=== PATIENT | female | born 1995 | race Two or more races ===

== ENCOUNTER 2018-06-14 03:50 | Emergency (ER) | payer OTHER ==
[2018-06-14 03:56] VITALS: BP 123/80
[2018-06-14] MEDS ORDERED: IPRATROPIUM/ALBUTEROL 0.5-2.5 MG/3 ML AMPUL NEB ONE ×2 (04:03→05:29)
--- NOTE | 2018-06-14 05:23 | RADIOLOGY REPORT (SQ) ---
EXAM DESCRIPTION: XR CHEST 2 VIEWS COMPLETED DATE/TME: 06/14/2018 04:03 CLINICAL HISTORY: 22 years, Female, SOB COMPARISON: None. NUMBER OF VIEWS: 2 TECHNIQUE: 2 views of the chest LIMITATIONS: None. FINDINGS: Heart size normal. Lungs clear. No pneumothorax IMPRESSION: Negative chest copyright 2010 [employer]- All Rights Reserved
[2018-06-14] MEDS ORDERED: ALBUTEROL SULFATE 0.083% NEB 2.5 MG/3 ML AMPUL NEB ONE (05:30)
--- NOTE | 2018-06-14 06:39 | ER Document Report ---
ED General - General Chief Complaint: Asthma Exacerbation Stated Complaint: WHEEZING Time Seen by Provider: 06/14/18 04:00 Notes: Patient is a 22-year-old female presents to the emergency department for respiratory distress. Patient is a known asthmatic. States for the last 48 hours she has had increased cough, congestion. She is denying any fevers. States she did use her at-home albuterol a few hours ago with minimal relief. Patient states she does not have a nebulizer machine at home. Past medical history: Asthma Medications: Albuterol Allergies: None known medical allergies Last menstrual period 05/07/2018 Patient states she is late on her menstrual cycle is unsure if she is . TRAVEL OUTSIDE OF THE [place] IN LAST 30 DAYS: No - Related Data Allergies/Adverse Reactions: kiwi Allergy (Intermediate, Verified 09/01/16 21:22) Past Medical History - General Information source: Patient - Social History Smoking Status: Current Some Day Smoker Family History: None Patient has suicidal ideation: No Patient has homicidal ideation: No Renal/ Medical History: Denies: Hx Peritoneal Dialysis Psychiatric Medical History: Reports: Hx Depression Review of Systems - Review of Systems Constitutional: See HPI EENT: See HPI Cardiovascular: See HPI Respiratory: See HPI Gastrointestinal: No symptoms reported Genitourinary: No symptoms reported Female Genitourinary: See HPI Musculoskeletal: No symptoms reported Skin: No symptoms reported Hematologic/Lymphatic: No symptoms reported Neurological/Psychological: No symptoms reported Physical Exam - Vital signs Vitals: Temp Pulse Resp BP Pulse Ox 98.0 F 81 20 123/80 99 06/14/18 03:55 06/14/18 03:55 06/14/18 03:55 06/14/18 03:55 06/14/18 03:55 - Notes Notes: GENERAL: Alert, interacts well. No acute distress. HEAD: Normocephalic, atraumatic. EYES: Pupils equal, round, and reactive to light. Extraocular movements intact. ENT: Oral mucosa moist, tongue midline. Nares patent, TM's intact, nonerythematous, nonbulging bilaterally. Pharynx within normal limits no palatal petechiae noted NECK: Full range of motion. Supple. Trachea midline. No lymphadenopathy appreciated LUNGS: Inspiratory and expiratory wheezes by auscultation bilaterally, no discernible rales. rhonchi heard left lower base. No respiratory distress. HEART: Regular rate and rhythm. No murmur ABDOMEN: Soft, non-tender. Non-distended. Bowel sounds present in all 4 quadrants. EXTREMITIES: Moves all 4 extremities spontaneously. No edema, normal radial and dorsalis pedis pulses bilaterally. No cyanosis. BACK: no cervical, thoracic, lumbar midline tenderness. No saddle anesthesia, normal distal neurovascular exam. NEUROLOGICAL: Alert and oriented x3. Normal speech. cranial nerves II through XII grossly intact. PSYCH: Normal affect, normal mood. SKIN: Warm, dry, normal turgor. No rashes or lesions noted. Course - Re-evaluation Re-evalutation: After initial breathing treatments in the emergency department patient's rhonchi has cleared. She continues with an expiratory wheeze heard in all oh. Repeat breathing treatments delivered. Patient's test came back positive. At this point in time steroids are not warranted due to . After last breathing treatment patient's lung sounds are now clear and equal in all oh. Discussed with her use of at home albuterol with spacer or nebulizer every 4 hours until follow-up with primary care provider. Patient is nontachypneic, non-hypoxic, stable for discharge. - Vital Signs Vital signs: Temp Pulse Resp BP Pulse Ox 98.0 F 81 18 123/80 98 06/14/18 03:55 06/14/18 03:55 06/14/18 04:06 06/14/18 03:55 06/14/18 04:06 - Laboratory Laboratory results interpreted by me: 06/14/18 04:46 Urine HCG, Qual POSITIVE H Discharge - Discharge Clinical Impression: Asthma exacerbation Qualifiers: Asthma severity: moderate Asthma persistence: unspecified Qualified Code(s): J45.901 - Unspecified asthma with (acute) exacerbation Qualifiers: Weeks of gestation: less than 8 weeks Qualified Code(s): Z3A.01 - Less than 8 weeks gestation of Condition: Stable Disposition: HOME, SELF-CARE Instructions: Asthma ([facility]), Inhaled Bronchodilators ([facility]), ([facility]) Additional Instructions: As we discussed you have been seen and treated in the emergency department for an asthma exacerbation. Please make sure you continue to use your albuterol inhaler or nebulizer machine every 4 hours. Please make sure you follow-up with your primary care provider in the next 24 to 48 hours. Please know that your test in the emergency department came back positive. Please make sure you also follow-up with your primary care provider for confirmatory blood work continued care. Unfortunately due to your I am unable to prescribe you steroids to help with your lung inflammation. Please make sure he return to the emergency department should you have any further respiratory distress. Prescriptions: Albuterol Sulfate [Ventolin 0.083% Neb 2.5 mg/3 mL Ampul] 1 vial NEB Q4 #60 vial Nebulizer [Nebulizer Machine] 1 each ASDIR PRN #1 kit PRN Reason: Forms: Return to Work
== END 2018-06-14 07:05 | disposition home or self-care (01) ==
LOC: ER 03:50
DX: O26.91 Pregnancy related conditions, unspecified, first trimester (principal); J45.901 Unspecified asthma with (acute) exacerbation; O99.331 Smoking (tobacco) complicating pregnancy, first trimester; Z3A.01 Less than 8 weeks gestation of pregnancy
CPT/HCPCS: 94640 ×2; 99285; 81025; 71046; J7620

== ENCOUNTER 2018-08-25 23:43 | Emergency (ER) | payer OTHER ==
--- NOTE | 2018-08-26 01:36 | ER Document Report ---
ED Skin Rash/Insect Bite/Abscs - General Chief Complaint: Skin Problem Stated Complaint: RASH Time Seen by Provider: 08/26/18 00:57 Primary Care Provider: ROSALINA CARLOS FNP-C [Primary Care Provider] - Follow up as needed Mode of Arrival: Ambulatory Information source: Patient Notes: 23-year-old female presents to ED for complaint of rash to the right side of her back. She states she had some itching and redness for about a week and then they started hurting a couple days ago. Bumps are in a cluster and are vesicular herpetiform type rash to the right upper back. There is no crossing of the midline. There is no rash to the front. Patient states she did have chickenpox as a child. Patient is 15 weeks . Patient is alert oriented respirations regular and unlabored speaking in full sentences walks with even steady gait. TRAVEL OUTSIDE OF THE [place] IN LAST 30 DAYS: No - HPI Patient complains to provider of: Skin rash/lesion Onset: Other - She states she has had itchiness and what she thought was a few bumps to the right side for about a week but the last 3 days they have become more painful and more bumps. She states she has been scratching them. Onset/Duration: Gradual, Persistent, Worse Severity: Moderate Pain Level: 3 Skin Character: Rash, Tenderness Quality of rash: Itchy, Painful Identify cause: No Exacerbated by: Denies Relieved by: Denies Similar symptoms previously: No Recently seen / treated by doctor: No - Related Data Allergies/Adverse Reactions: kiwi Allergy (Intermediate, Verified 09/01/16 21:22) Past Medical History - General Information source: Patient - Social History Smoking Status: Former Smoker Cigarette use (# per day): No Smoking Education Provided: No Frequency of alcohol use: None Drug Abuse: None Lives with: Family Family History: None Patient has suicidal ideation: No Patient has homicidal ideation: No - Past Medical History Cardiac Medical History: Reports: None Pulmonary Medical History: Reports: None EENT Medical History: Reports: None Neurological Medical History: Reports: None Endocrine Medical History: Reports: None Renal/ Medical History: Reports: None Malignancy Medical History: Reports: None GI Medical History: Reports: None Musculoskeletal Medical History: Reports None Skin Medical History: Reports None Psychiatric Medical History: Reports: Hx Depression Traumatic Medical History: Reports: None Infectious Medical History: Reports: None Surgical Hx: Negative Past Surgical History: Reports: None - Immunizations Immunizations up to date: Yes Review of Systems - Review of Systems Constitutional: No symptoms reported EENT: No symptoms reported Cardiovascular: No symptoms reported Respiratory: No symptoms reported Gastrointestinal: No symptoms reported Genitourinary: No symptoms reported Female Genitourinary: No symptoms reported Musculoskeletal: No symptoms reported Skin: Rash Hematologic/Lymphatic: No symptoms reported Neurological/Psychological: No symptoms reported Physical Exam - Vital signs Vitals: Temp Pulse Resp BP Pulse Ox 97.8 F 83 17 119/71 98 08/26/18 00:08 08/26/18 00:08 08/26/18 00:08 08/26/18 00:08 08/26/18 00:08 Interpretation: Normal - General General appearance: Appears well, Alert - HEENT Head: Normocephalic, Atraumatic Eyes: Normal Pupils: PERRL - Respiratory Respiratory status: No respiratory distress Chest status: Nontender Breath sounds: Normal Chest palpation: Normal - Cardiovascular Rhythm: Regular Heart sounds: Normal auscultation Murmur: No - Abdominal Inspection: Normal Distension: No distension Bowel sounds: Normal Tenderness: Nontender Organomegaly: No organomegaly - Back Back: Normal, Tender - Vesicular herpetiform rash to the right upper back does not cross midline - Extremities General upper extremity: Normal inspection, Nontender, Normal color, Normal ROM, Normal temperature General lower extremity: Normal inspection, Nontender, Normal color, Normal ROM, Normal temperature, Normal weight bearing. No: Jasper's sign - Neurological Neuro grossly intact: Yes Cognition: Normal Orientation: AAOx4 Mohamud Coma Scale Eye Opening: Spontaneous Mohamud Coma Scale Verbal: Oriented Mohamud Coma Scale Motor: Obeys Commands Mohamud Coma Scale Total: 15 Speech: Normal Motor strength normal: LUE, RUE, LLE, RLE Sensory: Normal - Psychological Associated symptoms: Normal affect, Normal mood - Skin Skin Temperature: Warm Skin Moisture: Dry Skin Color: Normal Skin irregularity: Rash Location of irregularity: Back Character of irregularity: Vesicular - Herpetiform to the right upper back, Erythematous Irregularity with: Tenderness Course - Re-evaluation Re-evalutation: 08/26/18 01:[address] Pena for the rash to the right back. He agreed that it could possibly be shingles he agreed with treatment of Valtrex and patient is to follow-up with her OBST[facility]RICS SPECIALIST as she is 15 weeks . Patient was treated with Valtrex in the emergency room and discharged home with prescription for Valtrex 3 times daily for 7 days. - Vital Signs Vital signs: Temp Pulse Resp BP Pulse Ox 97.8 F 72 16 113/72 98 08/26/18 02:16 08/26/18 02:16 08/26/18 02:16 08/26/18 02:16 08/26/18 02:16 Discharge - Discharge Clinical Impression: Shingles rash Qualifiers: Herpes zoster complications: without complications Qualified Code(s): B02.9 - Zoster without complications Condition: Stable Disposition: HOME, SELF-CARE Additional Instructions: Shingles You have shingles. Shingles is caused by the chicken pox virus, The virus has been surviving dormant in a nerve cell since you had chicken pox years ago. The virus has spread down a nerve root to reach the skin. Typically, an band-like area of pain and skin sensitivity develops, then small blisters erupt in the area. Shingles lasts two or three weeks, but sometimes leaves persistent pain. You are contagious -- you can give children chicken pox. But you can't give anyone shingles. Antiviral medicines (such as acyclovir or famciclovir) can help, but the rash usually worsens for about a week. Pain medication is often given if the area hurts. Antihistamines such as Benadryl may be necessary for itching if it does not respond to soda baths and calamine lotion. Sometimes cortisone medicine or nerve-block shots are necessary if pain is severe. If the area remains severely painful as the sores heal, or if you suspect an infection developing in the sores, see your doctor. Valtrex Valacyclovir(Valtrex) is used to treat infections caused by the Herpes family of viruses. It's available as capsules or ointment. Valtrex is most effective if started at the first sign of the viral outbreak. It can decrease the severity and duration of symptoms. However, it doesn't eliminate the virus from the body completely. If you're prone to repeated outbreaks of herpes, you'll continue to have attacks. Apply ointment with a disposable glove or finger-cot to avoid spreading the virus with your finger. If pills have been prescribed, take them for the full recommended course. Occasionally, mild nausea or headaches may occur. Call the doctor if you develop wheezing, itching, rash, shortness of breath, or lightheadedness. Acetaminophen Acetaminophen may be taken for pain relief or fever control. It's much safer than aspirin, offering a wider range of "safe" dosages. It is safe during . Some brand names are Tylenol, Panadol, Datril, Anacin 3, Tempra, and Liquiprin. Acetaminophen can be repeated every four hours. The following are maximum recommended dosages: WEIGHT Dose Drops Elixir Chewable(80mg) (LBS.) drprs=droppers tsp=teaspoon 6 40 mg .4 ml (1/2) 6-11 80 mg .8 ml (full) 1/2 tsp 1 tab 12-16 120 mg 1 1/2 drprs 3/4 tsp 1 1/2 tabs 17-23 160 mg 2 drprs 1 tsp 2 tabs 24-30 240 mg 3 drprs 1 1/2 tsp 3 tabs 30-35 320 mg 2 tsp 4 tabs 36-41 360 mg 2 1/4 tsp 4 1/2 tabs 42-47 400 mg 2 1/2 tsp 5 tabs 48-53 480 mg 3 tsp 6 tabs 54-59 520 mg 3 1/4 tsp 6 1/2 tabs 60-64 560 mg 3 1/2 tsp 7 tabs 65-70 600 mg 3 3/4 tsp 7 1/2 tabs 71-76 640 mg 4 tsp 8 tabs 77-82 720 mg 4 1/2 tsp 9 tabs 83-88 800 mg 5 tsp 10 tabs >89 pounds or adults 650 mg to 900 mg Acetaminophen can be repeated every four hours. Maximum daily dose not to exceed 4000 mg. These maximum recommended dosages are slightly higher than the dosages written on the product container, but these dosages are very safe and well below the toxic dosage for acetaminophen. Please call your OBSTETRICS SPECIALIST doctor in the morning and let them know that you have been started on Valtrex for shingles. FOLLOW-UP CARE: If you have been referred to a physician for follow-up care, call the physician s office for an appointment as you were instructed or within the next two days. If you experience worsening or a significant change in your symptoms, notify the physician immediately or return to the Emergency Department at any time for re-evaluation. Prescriptions: Valacyclovir HCl [Valtrex] 1,000 mg PO TID #21 tablet Referrals: ROSALINA CARLOS FNP-C [Primary Care Provider] - Follow up as needed
[2018-08-26] MEDS ORDERED: VALACYCLOVIR HCL 500 MG TABLET PO ONE (01:41)
[2018-08-26 02:20] VITALS: BP 113/72
== END 2018-08-26 02:21 | disposition home or self-care (01) ==
LOC: ER 23:43
DX: O98.512 Other viral diseases complicating pregnancy, second trimester (principal); B02.9 Zoster without complications; Z3A.15 15 weeks gestation of pregnancy; Z87.891 Personal history of nicotine dependence
CPT/HCPCS: 99283